=== PATIENT | male | born 1970 | race African-American/Black ===

== ENCOUNTER 2017-07-05 15:38 | Emergency (ER) | payer SELFPAY ==
[~2017-07-05] VITALS: Ht 177.8 cm; Wt 75.0 kg
[~2017-07-05 15:38] MED LIST: ALBU17AE27; NOCURR
[2017-07-05 15:54] VITALS: BP 159/100
[2017-07-05] MEDS ORDERED: IBUPROFEN 800 MG TABLET PO ONE (19:45)
[2017-07-05] MEDS ORDERED: AMOX TR/POT CLAV 875 MG/125 MG TABLET PO ONE (19:45)
== END 2017-07-05 20:18 | disposition home or self-care (01) ==
LOC: EMS 15:38
DX: K04.7 Periapical abscess without sinus (principal); I10 Essential (primary) hypertension; J45.909 Unspecified asthma, uncomplicated; F12.90 Cannabis use, unspecified, uncomplicated; F17.210 Nicotine dependence, cigarettes, uncomplicated
CPT/HCPCS: 99283